=== PATIENT | female | born 1950 | race Caucasian/White ===

== ENCOUNTER 2022-05-24 08:22 | Day surgery (SDC) | payer OTHER, MEDICARE ==
[2022-05-16 17:43] VITALS: BMI 17.6
[2022-05-24 10:16] VITALS: RESP 16; TEMP 98
[2022-05-24 10:58] VITALS: BP 138/82; PULSE 66
== END 2022-05-24 12:48 | disposition home or self-care (01) ==
LOC: FASU-ENDO 08:22
PROVIDERS: ATTEND Internal Medicine Gastroenterology
PROC: 0DB78ZX Excision of Stomach, Pylorus, Via Natural or Artificial Opening Endoscopic, Diagnostic (ICD-10-PCS; 2022-05-24)
PROC: 0DB48ZX Excision of Esophagogastric Junction, Via Natural or Artificial Opening Endoscopic, Diagnostic (ICD-10-PCS; 2022-05-24)
PROC: 0DB98ZX Excision of Duodenum, Via Natural or Artificial Opening Endoscopic, Diagnostic (ICD-10-PCS; principal; 2022-05-24 09:45)
DX: K29.70 Gastritis, unspecified, without bleeding (principal); K21.00 Gastro-esophageal reflux disease with esophagitis, without bleeding
CPT/HCPCS: 74018-TC-FY; 88305-TC; 88342-TC